=== PATIENT | male | born 1985 | race Caucasian/White ===

== ENCOUNTER 2016-08-21 06:17 | Emergency (ER) | payer OTHER ==
[~2016-08-21] VITALS: Wt 65.0 kg
[~2016-08-21 06:17] MED LIST: AMO500 PO; BISA-57 PO; CIPR7.5D4 LEFT EAR; CITROMA PO; HYDR-3498 PO; IBUP800T25 PO; MECL25TA2 PO; NAPR-260 PO
[2016-08-21] MEDS ORDERED: KETOROLAC 30 MG INJ IM STA (06:45)
--- NOTE | 2016-08-21 06:50 | ERD ---
ER Documentation Chief Complaint Date/Time DATE: 08/21/16 TIME: 06:48 Chief Complaint left shoulder non-traumatic for 3 wks. good rom . no deformity HPI This is a 31-year-old Male who presents to emergency department today complaining of left shoulder pain for past 3 weeks. 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 States he did see his clinic but they just gave him medication for pain. Denies any trauma, fevers or chills. ROS All systems reviewed and are negative except as per history of present illness. Medications Home Meds Active Scripts Tramadol HCl (Tramadol HCl) 50 Mg Tablet, 50 MG PO Q4 Y for PAIN, #20 TAB Prov:AMADEO OSORIO PA-C 08/21/16 Naproxen* (Naprosyn*) 500 Mg Tablet, 500 MG PO BID Y for PAIN AND/OR INFLAMMATION, #30 TAB Prov:AMADEO OSORIO PA-C 08/21/16 Magnesium Citrate* (Citroma*) 300 Ml Soln, 150 ML PO BID, #1 BOTTLE Prov:IGOR ALATORRE PA-C 01/03/16 Bisacodyl* (Dulcolax*) 5 Mg Tablet.dr, 10 MG PO DAILY Y for CONSTIPATION, #15 TAB Prov:IGOR ALATORRE PA-C 01/03/16 Hydrocodone Bit-Acetaminophen* ([place]*) 5-325 Mg Tab, 1 TAB PO Q6 Y for PAIN, # 7 TAB Prov:ELMO NICOLE PA-C 10/10/15 Naproxen* (Naprosyn*) 500 Mg Tablet, 500 MG PO BID Y for PAIN AND/OR INFLAMMATION, #20 TAB Prov:ELMO NICOLE PA-C 10/10/15 Ibuprofen* (Motrin*) 800 Mg Tab, 800 MG PO Q6H Y for PAIN AND OR ELEVATED TEMP, #30 TAB Prov:JESSICA PEREZ MD 10/05/15 Amoxicillin* (Amoxicillin*) 500 Mg Cap, 500 MG PO TID for 7 Days, CAP Prov:JESSICA PEREZ MD 10/05/15 Meclizine Hcl* (Antivert*) 25 Mg Tablet, 25 MG PO Q6H Y for NAUSEA, #20 TAB 0 Refills Prov:JULSIA HOPPER PA-C 09/27/15 Ciprofloxacin Hcl/Dexameth (Ciprodex Otic Suspension) 7.5 Ml Drops.susp, 4 DROP LEFT EAR BID, #1 BOTTLE 0 Refills Prov:JULISA HOPPER PA-C 09/27/15 Ibuprofen* (Motrin*) 800 Mg Tab, 800 MG PO Q6H Y for PAIN AND OR ELEVATED TEMP, #30 TAB Prov:EUGENIO DUBOIS. ELECTRICAL POWER ENGINEER 06/27/15 Naproxen* (Naprosyn*) 500 Mg Tablet, 500 MG PO BID Y for PAIN AND/OR INFLAMMATION, #10 TAB Prov:CAROLYNSANDRA JORGE DO 03/15/15 Allergies Allergies: Coded Allergies: No Known Allergy (Unverified , 08/21/16) PMhx/Soc Medical and Surgical Hx: pt denies Medical Hx, pt denies Surgical Hx History of Surgery: No Anesthesia Reaction: No Hx Neurological Disorder: No Hx Respiratory Disorders: No Hx Cardiac Disorders: No Hx Psychiatric Problems: No Hx Miscellaneous Medical Probl: No Hx Alcohol Use: No Hx Substance Use: No Hx Tobacco Use: No Smoking Status: Never smoker Physical Exam Vitals Vital Signs Date Time Temp Pulse Resp B/P Pulse Ox O2 Delivery O2 Flow Rate FiO2 08/21/16 06:20 97.9 78 20 125/75 99 Physical Exam Const: No acute distress Head: Atraumatic Eyes: Normal Conjunctiva ENT: Normal External Ears, Nose and Mouth. Neck: Full range of motion..~ No meningismus. Resp: Clear to auscultation bilaterally Cardio: Regular rate and rhythm, no murmurs Abd: Soft, non tender, non distended. Normal bowel sounds Skin: No petechiae or rashes MSk: Left shoulder no obvious deformity. No effusion. No ecchymosis. Full active range of motion with pain at end ranges of motion. Positive Tay. Pulses 2+. Distal neurovascularly intact. Neur: Awake and alert Psych: Normal Mood and Affect Results 24 hrs Current Medications Medications (Trade) Dose Ordered Sig/Annette Route PRN Reason Start Time Stop Time Status Last Admin Dose Admin Ketorolac Tromethamine (Toradol) 30 mg ONCE STAT IM 08/21/16 06:45 08/21/16 06:47 DC 08/21/16 06:49 DIAGNOSTIC IMAGING REPORT Patient: HEMANT TRIPATHI : 1985 Age: 31 Sex: M MR #: [id number] DOS: 08/21/16 0000 Ordering MD: AMADEO OSORIO PA-C Location: [facility] Room/Bed: PROCEDURE: XR left shoulder. CLINICAL INDICATION: pain x 3 weeks TECHNIQUE: 3 views of the left shoulder were performed. COMPARISON: None. FINDINGS: No fracture or dislocation is seen. No lytic or blastic bony lesion is seen. No significant degenerative change. No definite soft tissue abnormality. IMPRESSION: No definite acute fracture or dislocation. RPTAT: HLBE Laura Cabrera Physician Date Time Electronically viewed and signed by Laura Cabrera Physician on 08/21/2016 07 :41 LE/ CC: AMADEO OSORIO PA-C Procedures/MDM This 31-year-old male who presents to emergency department today complaining of left shoulder pain. The past 3 weeks. Patient has seen his clinic and has been given since her medication for pain. Patient is requesting an x-ray. Per the radiology report images are unremarkable. There is no acute fracture dislocation. There is no lytic or blastic bone lesion. There is no significant degenerative changes. Patient is afebrile and otherwise well-appearing. There is no erythema or warmth and no suspicion for septic joint or gout. Patient's symptoms at this time consistent with muscular skeletal strain versus sprain versus tendinitis. Patient was given Toradol here in the emergency department as he was driving. Pain improved. Patient was given a prescription for Naprosyn and short course of tramadol and instructed to follow-up with his primary care clinic for referral to physical therapy or orthopedic nurse or physical therapy. At this time the patient is stable for discharge and outpatient management. Patient should follow up with their PCP in the next 1-2 days. They may return to the emergency department sooner for any persistent or worsening of symptoms. Patient understood and agreed with the plan. Departure Diagnosis: Primary Impression: Shoulder pain Laterality: left Chronicity: unspecified Qualified Code: M25.512 - Left shoulder pain, unspecified chronicity Condition: Fair JO,AMADEO M. PA-C Aug 21, 2016 06:50
--- NOTE | 2016-08-21 07:42 | RADRPT ---
PROCEDURE: XR left shoulder. CLINICAL INDICATION: pain x 3 weeks TECHNIQUE: 3 views of the left shoulder were performed. COMPARISON: None. FINDINGS: No fracture or dislocation is seen. No lytic or blastic bony lesion is seen. No significant degene rative change. No definite soft tissue abnormality. IMPRESSION: No definite acute fracture or dislocation. RPTAT: HLBE Laura Cabrera Physician Date Time Electronically viewed and signed by Laura Cabrera, Physician on 08/21/2016 07:41 KIRK/
[2016-08-21] MEDS ORDERED: NAPR-260 PO (07:56)
[2016-08-21] MEDS ORDERED: ULT50 PO (07:56)
[2016-08-21 08:06] VITALS: BP 118/64; PULSE 72; RESP 19; TEMP 98.3
== END 2016-08-21 08:07 | disposition home or self-care (01) ==
LOC: FTE 06:17
DX: M25.512 Pain in left shoulder (principal)
CPT/HCPCS: 73030; 96372; 99284; J1885

== ENCOUNTER 2017-02-18 21:46 | Emergency (ER) | payer OTHER ==
[~2017-02-18] VITALS: Ht 162.6 cm; Wt 67.0 kg
[~2017-02-18 21:46] MED LIST changes: +TRAM50TA2 PO
[2017-02-18 21:49] VITALS: Ht 162.6 cm; Wt 67.0 kg
[2017-02-18] MEDS ORDERED: ONDANSETRON (ODT) 4 MG TAB ODT STA (22:57)
[2017-02-18] MEDS ORDERED: morphine 10 MG INJ IM ONE (23:00)
[2017-02-18] MEDS ORDERED: HYDROCODONE/APAP (10/325) TAB PO ONE (23:30)
--- NOTE | 2017-02-18 23:40 | RADRPT ---
PROCEDURE: ABDOMINAL - 2 VIEWS CLINICAL INDICATION: 31-year-old male with abdominal pain. TECHNIQUE: AP supine views of the abdomen were obtained portably. The images reviewed on a PACS w orkstation. COMPARISON: None. FINDINGS: The lung bases are unremarkable. There is mild retained stool and air throughout the colon without gross bowel obstruction. There are no abnormal calcifications overlying the urinary tracts. The osse ous structures are unremarkable. IMPRESSION: Mild retained stool without gross bowel obstruction. .Alton Maguire MD, Date Time Electronically viewed and signed by .Alton Maguire MD, on 02/18/2017 23:39 .M/
--- NOTE | 2017-02-19 00:09 | ERD ---
ER Documentation Chief Complaint Date/Time DATE: 02/19/17 TIME: 00:08 Chief Complaint LT UPPER ABD PAIN X 1 WEEK , VOMITING/DIZZINESS TODAY HPI 31 mL left upper abdominal pain for 1 week after drinking mag citrate. Patient has been constipated. He is having cramping abdominal pain. Had a bowel movement which was normal in caliber. Pain mild to moderate intensity. No fevers no chills. ROS All systems reviewed and are negative except as per history of present illness. Medications Home Meds Active Scripts Tramadol HCl (Tramadol HCl) 50 Mg Tablet, 50 MG PO Q4 Y for PAIN, #20 TAB Prov:AMADEO OSORIO PA-C 08/21/16 Naproxen* (Naprosyn*) 500 Mg Tablet, 500 MG PO BID Y for PAIN AND/OR INFLAMMATION, #30 TAB Prov:AMADEO OSORIO PA-C 08/21/16 Magnesium Citrate* (Citroma*) 300 Ml Soln, 150 ML PO BID, #1 BOTTLE Prov:IGOR ALATORRE PA-C 01/03/16 Bisacodyl* (Dulcolax*) 5 Mg Tablet.dr, 10 MG PO DAILY Y for CONSTIPATION, #15 TAB Prov:IGOR ALATORRE PA-C 01/03/16 Hydrocodone Bit-Acetaminophen* ([place]*) 5-325 Mg Tab, 1 TAB PO Q6 Y for PAIN, # 7 TAB Prov:ELMO NICOLE PA-C 10/10/15 Naproxen* (Naprosyn*) 500 Mg Tablet, 500 MG PO BID Y for PAIN AND/OR INFLAMMATION, #20 TAB Prov:ELMO NICOLE PA-C 10/10/15 Ibuprofen* (Motrin*) 800 Mg Tab, 800 MG PO Q6H Y for PAIN AND OR ELEVATED TEMP, #30 TAB Prov:JESSICA PEREZ MD 10/05/15 Amoxicillin* (Amoxicillin*) 500 Mg Cap, 500 MG PO TID for 7 Days, CAP Prov:JESSICA PEREZ MD 10/05/15 Meclizine Hcl* (Antivert*) 25 Mg Tablet, 25 MG PO Q6H Y for NAUSEA, #20 TAB 0 Refills Prov:JULISA HOPPER PA-C 09/27/15 Ciprofloxacin Hcl/Dexameth (Ciprodex Otic Suspension) 7.5 Ml Drops.susp, 4 DROP LEFT EAR BID, #1 BOTTLE 0 Refills Prov:JULISA HOPPER PA-C 09/27/15 Ibuprofen* (Motrin*) 800 Mg Tab, 800 MG PO Q6H Y for PAIN AND OR ELEVATED TEMP, #30 TAB Prov:EUGENIO DUBOIS. BIODIESEL PRODUCTION TECHNICIAN 06/27/15 Naproxen* (Naprosyn*) 500 Mg Tablet, 500 MG PO BID Y for PAIN AND/OR INFLAMMATION, #10 TAB Prov:SANDRA LEON DO 03/15/15 Allergies Allergies: Coded Allergies: No Known Allergy (Unverified , 08/21/16) PMhx/Soc History of Surgery: No Anesthesia Reaction: No Hx Neurological Disorder: No Hx Respiratory Disorders: No Hx Cardiac Disorders: No Hx Psychiatric Problems: No Hx Miscellaneous Medical Probl: No Hx Alcohol Use: No Hx Substance Use: No Hx Tobacco Use: No Smoking Status: Never smoker Physical Exam Vitals Vital Signs Date Time Temp Pulse Resp B/P Pulse Ox O2 Delivery O2 Flow Rate FiO2 02/18/17 21:49 98.1 76 18 119/59 99 Physical Exam Const: [] Head: Atraumatic Eyes: Normal Conjunctiva ENT: Normal External Ears, Nose and Mouth. Neck: Full range of motion..~ No meningismus. Resp: Clear to auscultation bilaterally Cardio: Regular rate and rhythm, no murmurs Abd: Soft, non tender, non distended. Normal bowel sounds Skin: No petechiae or rashes Back: No midline or flank tenderness Ext: No cyanosis, or edema Neur: Awake and alert Psych: Normal Mood and Affect Results 24 hrs Current Medications Medications (Trade) Dose Ordered Sig/Annette Route PRN Reason Start Time Stop Time Status Last Admin Dose Admin Morphine Sulfate (morphine) 4 mg ONCE ONCE IM 02/18/17 23:00 02/18/17 23:01 DC Ondansetron HCl (Zofran Odt) 4 mg ONCE STAT ODT 02/18/17 22:57 02/18/17 22:59 DC 02/18/17 23:13 Acetaminophen/ Hydrocodone Bitart ([place] (10/325)) 1 tab ONCE ONCE PO 02/18/17 23:30 02/18/17 23:31 DC 02/18/17 23:13 Procedures/MDM X-ray Abdomen 1V Interpreted by me: Free Air: [None] Bowel Gas: [Nonspecific] Soft Tissue: [Normal] Medical decision-makin mL with pain secondary to mag citrate usage. Patient still mildly constipated. Patient be discharged home with Bentyl along with Colace. Follow-up in 8 hours for serial abdominal exams. Well-appearing tolerating p.o. serial negative abdominal exams here in the emergency department Departure Diagnosis: Primary Impression: Constipation Constipation type: unspecified constipation type Qualified Code: K59.00 - Constipation, unspecified constipation type Additional Impression: Abdominal pain Abdominal location: unspecified location Qualified Code: R10.9 - Abdominal pain, unspecified location Condition: Stable MAMIE MORRIS Feb 19, 2017 00:08
[2017-02-19] MEDS ORDERED: DOCU-144 PO (00:11)
[2017-02-19] MEDS ORDERED: DICY10CA60 PO (00:11)
== END 2017-02-19 00:22 | disposition home or self-care (01) ==
LOC: E/R 21:46
DX: K59.00 Constipation, unspecified (principal)
CPT/HCPCS: 74000

== ENCOUNTER 2017-05-10 06:37 | Emergency (ER) | payer OTHER ==
[~2017-05-10] VITALS: Ht 162.6 cm; Wt 66.0 kg
[~2017-05-10 06:37] MED LIST changes: -AMO500 PO; +AMOX500C2 PO; +DICY10CA60 PO; +DOCU-144 PO
[2017-05-10 06:49] VITALS: Ht 162.6 cm; Wt 66.0 kg
[2017-05-10] MEDS ORDERED: ONDANSETRON 4 MG INJ IV STA (07:14)
[2017-05-10] MEDS ORDERED: SOD CHLORIDE 0.9% 1,000 ML IV STA (07:14)
[2017-05-10] MEDS ORDERED: morphine 4 MG/ML VIAL IV STA (07:14)
[2017-05-10] MEDS ORDERED: KETOROLAC 30 MG INJ IV STA (07:14)
--- NOTE | 2017-05-10 07:18 | ERD ---
ER Documentation Chief Complaint Date/Time DATE: 05/10/17 TIME: 07:15 Chief Complaint left abdominal pain x 10 days HPI This is a 31-year-old previously healthy male that presents to the emergency department complaining of intermittent epigastric and left upper quadrant pain for the past 10 days. He denies any recent or remote blunt or penetrating abdominal wall trauma. He states that the pain was a dull achy pain that would be exacerbated with touch and movement. Indicates however that upon awakening this morning the pain began to radiate to the left lower quadrant and was 10 out of 10 in intensity. The pain was persistent and there is no alleviating factors. The patient had one episode of nonbloody nonbilious emesis. He denies any radiation of pain to the back. He has no fevers or shaking or chills. He denies any illicit drug use or alcohol use. He denies any gross hematuria. He has no recurrence urgency or dysuria. He has no chest pain or pressure that radiates to the neck or back or jaw. He has no shortness of breath at rest or exertion. ROS All systems reviewed and are negative except as per history of present illness. Medications Home Meds Active Scripts Naproxen* (Naprosyn*) 500 Mg Tablet, 500 MG PO BID Y for PAIN AND/OR INFLAMMATION, #30 TAB Prov:OLIVIA OCASIO 05/10/17 Docusate Sodium* (Colace*) 100 Mg Capsule, 100 MG PO TID, #30 CAP Prov:MAMIE MORRIS 02/19/17 Dicyclomine Hcl* (Bentyl*) 10 Mg Capsule, 10 MG PO QID, #30 CAP Prov:MMAIE MORRIS 02/19/17 Tramadol HCl (Tramadol HCl) 50 Mg Tablet, 50 MG PO Q4 Y for PAIN, #20 TAB Prov:AMADEO OSORIO PA-C 08/21/16 Naproxen* (Naprosyn*) 500 Mg Tablet, 500 MG PO BID Y for PAIN AND/OR INFLAMMATION, #30 TAB Prov:AMADEO OSORIOC 08/21/16 Magnesium Citrate* (Citroma*) 300 Ml Soln, 150 ML PO BID, #1 BOTTLE Prov:IGOR ALATORREC 01/03/16 Bisacodyl* (Dulcolax*) 5 Mg Tablet.dr, 10 MG PO DAILY Y for CONSTIPATION, #15 TAB Prov:IGOR ALATORRE PA-C 01/03/16 Hydrocodone Bit-Acetaminophen* ([place]*) 5-325 Mg Tab, 1 TAB PO Q6 Y for PAIN, # 7 TAB Prov:ELMO NICOLE PA-C 10/10/15 Naproxen* (Naprosyn*) 500 Mg Tablet, 500 MG PO BID Y for PAIN AND/OR INFLAMMATION, #20 TAB Prov:ELMO NICOLE PA-C 10/10/15 Ibuprofen* (Motrin*) 800 Mg Tab, 800 MG PO Q6H Y for PAIN AND OR ELEVATED TEMP, #30 TAB Prov:JESSICA PEREZ MD 10/05/15 Amoxicillin* (Amoxicillin*) 500 Mg Cap, 500 MG PO TID for 7 Days, CAP Prov:JESSICA PEREZ MD 10/05/15 Meclizine Hcl* (Antivert*) 25 Mg Tablet, 25 MG PO Q6H Y for NAUSEA, #20 TAB 0 Refills Prov:JULISA HOPPER PA-C 09/27/15 Ciprofloxacin Hcl/Dexameth (Ciprodex Otic Suspension) 7.5 Ml Drops.susp, 4 DROP LEFT EAR BID, #1 BOTTLE 0 Refills Prov:JULISA HOPPER PA-C 09/27/15 Ibuprofen* (Motrin*) 800 Mg Tab, 800 MG PO Q6H Y for PAIN AND OR ELEVATED TEMP, #30 TAB Prov:EUGENIO DUBOIS NP 06/27/15 Naproxen* (Naprosyn*) 500 Mg Tablet, 500 MG PO BID Y for PAIN AND/OR INFLAMMATION, #10 TAB Prov:SANDRA LEON DO 03/15/15 Allergies Allergies: Coded Allergies: No Known Allergy (Unverified , 08/21/16) PMhx/Soc History of Surgery: No Anesthesia Reaction: No Hx Neurological Disorder: No Hx Respiratory Disorders: No Hx Cardiac Disorders: No Hx Psychiatric Problems: No Hx Miscellaneous Medical Probl: No Hx Alcohol Use: No Hx Substance Use: No Hx Tobacco Use: No Smoking Status: Never smoker Physical Exam Vitals Vital Signs Date Time Temp Pulse Resp B/P Pulse Ox O2 Delivery O2 Flow Rate FiO2 05/10/17 06:49 98.4 57 18 136/76 100 Physical Exam Constitutional:Well-developed. Well-nourished. HEENT:Normocephalic. Atraumatic.Pupils were equal round reactive to light. Moist mucous membranes.No tonsillar exudates. Neck: No nuchal rigidity. No lymphadenopathy. No posterior cervical spine tenderness or step-offs. Respiratory: Not using accessory muscles of respiration.Lungs were clear to auscultation bilaterally. No rhonchi. No rales. No wheezing. Cardiovascular: Regular rate regular rhythm.No murmurs. No rubs were appreciated.S1, S2 normal. Distal pulses are palpable 2+ bilaterally. GI: Abdomen was soft. The gastric tenderness and tenderness in the left lower quadrant. Non Distended. No pulsatile abdominal masses or bruits. No rebound. No guarding. Bowel sounds were present and normal. Muscle skeletal: Full range of motion of both the upper and lower extremities bilaterally.Normal muscle tone.No assymetrical calf tenderness or swelling. Skin: No petechia, no purpura. No lesions on the palms or the soles of the feet. No maculopapular rash. NEURO: Patient was alert, awake, orientated x3.No facial droop. Gait observed and normal with no ataxia.Speech had regular rate and rhythm. No focal neurological deficits. Result Diagram: 05/10/17 0725 05/10/17 0725 Results 24 hrs Laboratory Tests Test 05/10/17 07:25 White Blood Count 7.310^3/ul Red Blood Count 5.3110^6/ul Hemoglobin 16.7g/dl Hematocrit 46.9% Mean Corpuscular Volume 88.3fl Mean Corpuscular Hemoglobin 31.5pg Mean Corpuscular Hemoglobin Concent 35.6g/dl Red Cell Distribution Width 11.8% Platelet Count 58301^3/UL Mean Platelet Volume 10.0fl Neutrophils % 37.2% Lymphocytes % 34.9% Monocytes % 7.2% Eosinophils % 20.0% Basophils % 0.6% Nucleated Red Blood Cells % 0.0/100WBC Neutrophils # 2.710^3/ul Lymphocytes # 2.510^3/ul Monocytes # 0.510^3/ul Eosinophils # 1.510^3/ul Basophils # 0.010^3/ul Nucleated Red Blood Cells # 0.010^3/ul Prothrombin Time 12.9Sec Prothrombin Time Ratio 1.0 INR International Normalized Ratio 0.97 Activated Partial Thromboplast Time 31.6Sec Urine Color YELLOW Urine Clarity SLIGHTLY CLOUDY Urine pH 7.0 Urine Specific Ashley 1.019 Urine Ketones NEGATIVEmg/dL Urine Nitrite NEGATIVEmg/dL Urine Bilirubin NEGATIVEmg/dL Urine Urobilinogen NEGATIVEmg/dL Urine Leukocyte Esterase NEGATIVELeu/ul Urine Microscopic RBC 1/HPF Urine Microscopic WBC 2/HPF Urine Amorphous Crystals FEW/HPF Urine Bacteria FEW/HPF Urine Hemoglobin NEGATIVEmg/dL Urine Glucose NEGATIVEmg/dL Urine Total Protein NEGATIVEmg/dl Sodium Level 141mmol/L Potassium Level 4.2mmol/L Chloride Level 103mmol/L Carbon Dioxide Level 29mmol/L Anion Gap 13 Blood Urea Nitrogen 19mg/dl Creatinine 0.76mg/dl Glucose Level 94mg/dl Calcium Level 9.4mg/dl Total Bilirubin 0.7mg/dl Direct Bilirubin 0.00mg/dl Indirect Bilirubin 0.7mg/dl Aspartate Amino Transf (AST/SGOT) 31IU/L Alanine Aminotransferase (ALT/SGPT) 33IU/L Alkaline Phosphatase 70IU/L Total Protein 8.6g/dl Albumin 5.0g/dl Globulin 3.60g/dl Albumin/Globulin Ratio 1.38 Amylase Level 117U/L Lipase 186U/L Current Medications Medications (Trade) Dose Ordered Sig/Annette Route PRN Reason Start Time Stop Time Status Last Admin Dose Admin Sodium Chloride (NS) 1,000 ml @ 1,000 mls/hr Q1H STAT IV 05/10/17 07:14 05/10/17 08:13 DC 05/10/17 07:31 Morphine Sulfate (morphine) 4 mg ONCE STAT IV 05/10/17 07:14 05/10/17 07:16 DC 05/10/17 07:32 Ondansetron HCl (Zofran Inj) 4 mg ONCE STAT IV 05/10/17 07:14 05/10/17 07:16 DC 05/10/17 07:32 Ketorolac Tromethamine 30 mg 30 mg ONCE STAT IV 05/10/17 07:14 05/10/17 07:16 DC 05/10/17 07:31 Sodium Chloride (NS) 100 ml @ ud STK-MED ONCE .ROUTE 05/10/17 08:30 05/10/17 08:31 DC Iohexol (Omnipaque 300mg/ ml) 150 ml STK-MED ONCE .ROUTE 05/10/17 08:30 05/10/17 08:31 DC Procedures/MDM The patient presented to the emergency department with epigastric pain. My differential diagnosis included but was not limited to abdominal aortic aneurysm , choledocholithiasis, gallstone ileus, renal colic, pyelonephritis, pancreatitis, peptic ulcer disease, atypical myocardical infarction, mesenteric ischemia, GERD, pulmonary infarction. The patient was placed on a cardiac cath rn, continuous pulse oximetry and IV access was established by nursing staff. Patient received IV morphine Zofran and Toradol for analgesia control An EKG was not obtained as the patient has no cardiac risk factors and no chest discomfort therefore did not feel this was a result of atypical myocardial infarction. There was no elevation of LFTs to suggest ductal obstruction, cholangitis, cholecystiitis or hepatitis. Given that the urinalysis did not show bilirubinuria, my suspicion for common duct obstruction or hepatitis was low. I obtained a CT scan of the patient's abdomen which showed no acute surgical abdomen such as appendicitis, diverticulitis small bowel obstruction or perforation. I indicated to the patient I did not have an exact etiology into the cause of the patient's symptoms but this could be musculoskeletal versus gastritis however indicated that the patient will require an outpatient upper endoscopy. He was given GI follow-up. He was sent home with analgesic medication which included Naprosyn for inflammation. The patient was discharged home in fair condition. They were instructed to return to the emergency department at any time if there was any worsening of their condition. The patient stated they would follow up with their PCP in the next 24-48 hours to initiate a suitable medication regimen under the care of their PCP as well as to allow their PCP to monitor any drug reactions. The patient was discharged home with prescriptions after they gave informed consent to the new medication. They were also fully informed by myself on the adverse effects and adverse drug interactions in order to provide adequate safeguards to prevent possible adverse reactions to medications. Departure Diagnosis: Primary Impression: Abdominal pain Abdominal location: left lower quadrant Qualified Code: R10.32 - Left lower quadrant pain Condition: Fair OLIVIA OCASIO May 10, 2017 07:18
[2017-05-10 07:45] LABS: BASOPHILS % 0.6 % (0.0-2.0); EOSINOPHILS # 1.5 10^3/ul (0.0-0.5); HEMATOCRIT 46.9 % (42.0-52.0); HEMOGLOBIN 16.7 g/dl (14.0-18.0); LYMPHOCYTES # 2.5 10^3/ul (0.8-2.9); LYMPHOCYTES % 34.9 % (15.0-51.0); MEAN CORPUSCULAR HEMOGLOBIN 31.5 pg (29.0-33.0); MEAN CORPUSCULAR HGB CONC 35.6 g/dl (32.0-37.0); MEAN CORPUSCULAR VOLUME 88.3 fl (82.0-101.0); MONOCYTE # 0.5 10^3/ul (0.3-0.9); MONOCYTES % 7.2 % (0.0-11.0); NEUTROPHIL # 2.7 10^3/ul (1.6-7.5); NEUTROPHILS % 37.2 % (39.0-77.0); PLATELET COUNT 199 10^3/UL (140-415); RED BLOOD COUNT 5.31 10^6/ul (4.70-6.10); RED CELL DISTRIBUTION WIDTH 11.8 % (11.5-14.5); WHITE BLOOD COUNT 7.3 10^3/ul (4.8-10.8)
[2017-05-10 08:07] LABS: ALBUMIN/GLOBULIN RATIO 1.38; BILIRUBIN,INDIRECT 0.7 mg/dl (0-1.1); BILIRUBIN,TOTAL 0.7 mg/dl (0.2-1.3); CALCIUM 9.4 mg/dl (8.4-10.2); CREATININE 0.76 mg/dl (0.61-1.24); POTASSIUM 4.2 mmol/L (3.5-5.1); TOTAL PROTEIN 8.6 g/dl (6.1-8.1)
[2017-05-10 08:12] LABS: ADD UMIC NO; INR 0.97; PARTIAL THROMBOPLASTIN TIME 31.6 Sec (25.0-35.0); PROTIME 12.9 Sec (12.2-14.2); UR AMORPHOUS CRYSTAL FEW /HPF (NONE SEEN); UR ASCORBIC ACID NEGATIVE (NEGATIVE); UR BACTERIA FEW /HPF (NONE SEEN); UR BILIRUBIN (Dip) NEGATIVE (NEGATIVE); UR BLOOD (Dip) NEGATIVE (NEGATIVE); UR CLARITY SLIGHTLY CLOUDY (CLEAR); UR COLOR YELLOW (YELLOW); UR GLUCOSE (Dip) NEGATIVE (NEGATIVE); UR KETONES (Dip) NEGATIVE (NEGATIVE); UR LEUKOCYTE ESTERASE (Dip) NEGATIVE Leu/ul (NEGATIVE); UR NITRITE (Dip) NEGATIVE (NEGATIVE); UR RBC 1 /HPF (0-5); UR SPECIFIC GRAVITY (Dip) 1.019 (1.003-1.030); UR TOTAL PROTEIN (Dip) NEGATIVE (NEGATIVE); UR UROBILINOGEN (Dip) NEGATIVE (NEGATIVE)
[2017-05-10] MEDS ORDERED: SOD CHLORIDE 0.9% 100 ML ONE (08:30)
[2017-05-10] MEDS ORDERED: IOHEXOL 300MG/ML 150 ML BTL ONE (08:30)
--- NOTE | 2017-05-10 08:47 | RADRPT ---
PROCEDURE: CT abdomen and pelvis with contrast. CLINICAL INDICATION: abdominal pain TECHNIQUE: CT scan of the abdomen and pelvis with contrast was performed on a multislice CT scanne . The patient was scanned after administration of 90 cc of Omnipaque 300 contrast. Oral contrast was also administered. 3-D sagittal and coronal reformatted images were obtained from the axial aniyah rce images. One or more of the following post reduction techniques were used: - Automated exposure control. - Adjustment of the mA and/or Kv according to patient's size. - Use of iterative reconstruction technique DLP 369 mGycm. CTDI vol 7.05 mGy COMPARISON: 01/03/2016 FINDINGS: The lung bases are clear. The liver, spleen, adrenal glands, pancreas, gallbladder and kidneys are normal. The aorta is normal in caliber and there is no ascites or retroperitoneal adenopathy. There is no bowel obstruction. The appendix is normal. The urinary bladder is normal. No pelvic masses or pelvic lymphadenopathy seen. There is no free fl uid. The bony pelvis is intact. RPTAT: AA IMPRESSION: Unremarkable CT scan of the abdomen and pelvis. .Tyler Ferris MD, MD Date Time Electronically viewed and signed by .Tyler Ferris MD, MD on 05/10/2017 08:47 .S/
[2017-05-10] MEDS ORDERED: NAPR-260 PO (09:20)
== END 2017-05-10 10:07 | disposition home or self-care (01) ==
LOC: FTE 06:37
DX: R10.32 Left lower quadrant pain (principal)
CPT/HCPCS: 36415; 74177; 80053; 81001; 82150; 83690; 85025; 85610; 85730; 96361; 96374; 96375; 99285; J1885; J2270; J2405; J7030; Q9967; 81003

== ENCOUNTER 2017-05-24 06:25 | Emergency (ER) | payer OTHER ==
[~2017-05-24] VITALS: Ht 162.6 cm; Wt 67.8 kg
[2017-05-24 06:27] VITALS: Ht 162.6 cm; Wt 67.8 kg
[2017-05-24] MEDS ORDERED: FAMOTIDINE 20 MG TAB PO ONE (07:00)
[2017-05-24] MEDS ORDERED: LIDOCAINE/MYLANTA 40 ML BTL PO ONE (07:00)
--- NOTE | 2017-05-24 07:01 | ERD ---
ER Documentation Chief Complaint Date/Time DATE: 05/24/17 TIME: 06:56 Chief Complaint left quadrant pain , nose bleeds HPI Patient is a 31-year-old male who presents to the emergency department for concerns of left upper quadrant abdominal pain for the last month. Patient was seen here on 05-10-17 and at that time underwent blood work and a CT scan. Patient states his symptoms have persisted. Patient states the pain continues to be in the left upper quadrant. Patient describes the pain to be achy and burning in nature. Patient states that the pain is worse in the mornings. States that he has been taking naproxen with no relief of symptoms. Patient does admit to spicy and fried food intake. Patient denies any alcohol use. Patient states he did vomit last night. Patient denies any fevers or chills. Patient also reports hard stools. He states his last, it was yesterday however he does have hard, pellet-like stools. Patient denies any radiation of the pain into his chest or back. Patient denies any shortness of breath, left upper extremity pain, diaphoresis or loss of consciousness. Patient has not seen a GI specialist. Patient also reports epistaxis at night. Denies any blood thinner medication. Patient denies any history of coagulation disorders. ROS All systems reviewed and are negative except as per history of present illness. Medications Home Meds Active Scripts Ondansetron (Ondansetron Odt) 4 Mg Tab.rapdis, 4 MG PO Q6H Y for NAUSEA AND/OR VOMITING, #10 TAB Prov:FELIZ GLASGOW PA-C 05/24/17 Famotidine* (Pepcid*) 20 Mg Tablet, 20 MG PO BID for 30 Days, TAB Prov:FELIZ GLASGOW PA-C 05/24/17 Naproxen* (Naprosyn*) 500 Mg Tablet, 500 MG PO BID Y for PAIN AND/OR INFLAMMATION, #30 TAB Prov:OLIVIA OCASIO 05/10/17 Docusate Sodium* (Colace*) 100 Mg Capsule, 100 MG PO TID, #30 CAP Prov:MAMIE MORRIS 02/19/17 Dicyclomine Hcl* (Bentyl*) 10 Mg Capsule, 10 MG PO QID, #30 CAP Prov:MAMIE MORRIS 02/19/17 Tramadol HCl (Tramadol HCl) 50 Mg Tablet, 50 MG PO Q4 Y for PAIN, #20 TAB Prov:AMADEO OSORIO PA-C 08/21/16 Naproxen* (Naprosyn*) 500 Mg Tablet, 500 MG PO BID Y for PAIN AND/OR INFLAMMATION, #30 TAB Prov:AMADEO OSORIO PA-C 08/21/16 Magnesium Citrate* (Citroma*) 300 Ml Soln, 150 ML PO BID, #1 BOTTLE Prov:IGOR ALATORRE PA-C 01/03/16 Bisacodyl* (Dulcolax*) 5 Mg Tablet.dr, 10 MG PO DAILY Y for CONSTIPATION, #15 TAB Prov:IGOR ALATORRE PA-C 01/03/16 Hydrocodone Bit-Acetaminophen* ([place]*) 5-325 Mg Tab, 1 TAB PO Q6 Y for PAIN, # 7 TAB Prov:ELMO NICOLE PA-C 10/10/15 Naproxen* (Naprosyn*) 500 Mg Tablet, 500 MG PO BID Y for PAIN AND/OR INFLAMMATION, #20 TAB Prov:ELMO NICOLE PA-C 10/10/15 Ibuprofen* (Motrin*) 800 Mg Tab, 800 MG PO Q6H Y for PAIN AND OR ELEVATED TEMP, #30 TAB Prov:JESSICA PEREZ MD 10/05/15 Amoxicillin* (Amoxicillin*) 500 Mg Cap, 500 MG PO TID for 7 Days, CAP Prov:JESSICA PEREZ MD 10/05/15 Meclizine Hcl* (Antivert*) 25 Mg Tablet, 25 MG PO Q6H Y for NAUSEA, #20 TAB 0 Refills Prov:JULISA HOPPER PA-C 09/27/15 Ciprofloxacin Hcl/Dexameth (Ciprodex Otic Suspension) 7.5 Ml Drops.susp, 4 DROP LEFT EAR BID, #1 BOTTLE 0 Refills Prov:JULISA HOPPER PA-C 09/27/15 Ibuprofen* (Motrin*) 800 Mg Tab, 800 MG PO Q6H Y for PAIN AND OR ELEVATED TEMP, #30 TAB Prov:EUGENIO DUBOIS NP 06/27/15 Naproxen* (Naprosyn*) 500 Mg Tablet, 500 MG PO BID Y for PAIN AND/OR INFLAMMATION, #10 TAB Prov:SANDRA LEON DO 03/15/15 Allergies Allergies: Coded Allergies: No Known Allergy (Unverified , 05/24/17) PMhx/Soc Medical and Surgical Hx: pt denies Medical Hx, pt denies Surgical Hx History of Surgery: No Anesthesia Reaction: No Hx Neurological Disorder: No Hx Respiratory Disorders: No Hx Cardiac Disorders: No Hx Psychiatric Problems: No Hx Miscellaneous Medical Probl: No Hx Alcohol Use: No Hx Substance Use: No Hx Tobacco Use: No Smoking Status: Never smoker Physical Exam Vitals Vital Signs Date Time Temp Pulse Resp B/P Pulse Ox O2 Delivery O2 Flow Rate FiO2 05/24/17 06:27 98.1 68 17 118/74 99 Physical Exam GENERAL: Well-developed, well-nourished male. Appears in no acute distress. HEAD: Normocephalic, atraumatic. EYES: Pupils are equally reactive bilaterally. EOMs grossly intact. No conjunctival erythema. ENT: Moist mucous membranes. No uvula deviation. No kissing tonsils. NECK: Supple. No meningismus. Normal range of motion of the neck. LUNG: Clear to auscultation bilaterally. No rhonchi, wheezing, rales or coarse breath sounds. HEART: Regular rate and rhythm. No murmurs, rubs or gallops. ABDOMEN: No scars, ecchymosis or rashes noted. Soft and nondistended. Tender to palpation in the right upper quadrant. Positive bowel sounds in all four quadrants. No rebound tenderness, no guarding. (-) McBurney's point tenderness. No CVA tenderness. BACK: No midline tenderness. EXTREMITIES: Equal pulses bilaterally. No peripheral clubbing, cyanosis or edema. No unilateral leg swelling. NEUROLOGIC: Alert and oriented. Moving all four extremities without any difficulty. Normal speech. Steady gait. SKIN: Normal color. Warm and dry. No rashes or lesions. Result Diagram: 05/24/1714 05/24/1714 Results 24 hrs Laboratory Tests Test 05/24/17 07:14 05/24/17 07:17 White Blood Count 7.510^3/ul Red Blood Count 5.3510^6/ul Hemoglobin 16.2g/dl Hematocrit 47.6% Mean Corpuscular Volume 89.0fl Mean Corpuscular Hemoglobin 30.3pg Mean Corpuscular Hemoglobin Concent 34.0g/dl Red Cell Distribution Width 12.0% Platelet Count 23335^3/UL Mean Platelet Volume 9.9fl Neutrophils % 50.3% Lymphocytes % 26.0% Monocytes % 6.8% Eosinophils % 16.3% Basophils % 0.5% Nucleated Red Blood Cells % 0.0/100WBC Neutrophils # 3.810^3/ul Lymphocytes # 1.910^3/ul Monocytes # 0.510^3/ul Eosinophils # 1.210^3/ul Basophils # 0.010^3/ul Nucleated Red Blood Cells # 0.010^3/ul Sodium Level 140mmol/L Potassium Level 4.5mmol/L Chloride Level 103mmol/L Carbon Dioxide Level 30mmol/L Anion Gap 12 Blood Urea Nitrogen 17mg/dl Creatinine 0.72mg/dl Glucose Level 89mg/dl Calcium Level 10.0mg/dl Total Bilirubin 0.3mg/dl Direct Bilirubin 0.00mg/dl Indirect Bilirubin 0.3mg/dl Aspartate Amino Transf (AST/SGOT) 29IU/L Alanine Aminotransferase (ALT/SGPT) 38IU/L Alkaline Phosphatase 68IU/L Total Protein 7.9g/dl Albumin 4.5g/dl Globulin 3.40g/dl Albumin/Globulin Ratio 1.32 Lipase 131U/L Urine Color YELLOW Urine Clarity CLEAR Urine pH 7.0 Urine Specific [place] 1.008 Urine Ketones NEGATIVEmg/dL Urine Nitrite NEGATIVEmg/dL Urine Bilirubin NEGATIVEmg/dL Urine Urobilinogen NEGATIVEmg/dL Urine Leukocyte Esterase NEGATIVELeu/ul Urine Hemoglobin NEGATIVEmg/dL Urine Glucose NEGATIVEmg/dL Urine Total Protein NEGATIVEmg/dl Current Medications Medications (Trade) Dose Ordered Sig/Annette Route PRN Reason Start Time Stop Time Status Last Admin Dose Admin Miscellaneous Medication (Gi Cocktail (2)) 40 ml ONCE ONCE PO 05/24/17 07:00 05/24/17 07:01 DC 05/24/17 07:01 Famotidine (Pepcid) 20 mg ONCE ONCE PO 05/24/17 07:00 05/24/17 07:01 DC 05/24/17 07:02 Procedures/MDM ED COURSE: The patient was stable throughout ED course. I kept the patient and/or family informed of laboratory and diagnostic imaging results throughout the ED course. DIAGNOSTIC IMAGING: Read by radiologist. DIAGNOSTIC IMAGING REPORT Patient: HEMANT ABREU : 1985 Age: 31 Sex: M MR #: [id number] [facility] #: [id number] DOS: 05/24/17 0650 Ordering MD: FELIZ GLASGOW PA-C Location: [facility] Room/Bed: PROCEDURE: Abdominal radiograph CLINICAL INDICATION: Constipation. COMPARISON: Radiograph 02/18/2017. TECHNIQUE: AP view of the abdomen. FINDINGS: The visualized lung bases are clear. No free air. Mild amount of stool within the cecum. No distended loops of bowel. No fluid levels. There is a nonobstructive bowel pattern. No suspicious calcifications. No suspicious bone abnormality. IMPRESSION: No bowel obstruction identified. RPTAT: AA Physician Dharmesh Date Time Electronically viewed and signed by Romero Tomlinson Physician on 05/24/2017 08: 00 LG/ CC: FELIZ GLASGOW PA-C PROCEDURES: None. MEDICATIONS GIVEN: GI cocktail, Pepcid Patient tolerated medication well with no adverse reactions. Patient reported improvement in pain. MEDICAL DECISION MAKING: This is a 31-year-old male who presents with left upper quadrant pain 1 month. Patient did admit to spicy and fried food intake. Patient denies any alcohol use. Patient denies any fevers or chills. Patient reported one episode of vomiting last night. Vital signs were reviewed. Patient is afebrile. CBC showed no evidence of systemic infection or severe anemia. CMP showed no evidence of electrolyte abnormalities, severe acidosis, alkalosis, renal failure , or liver disease. Lipase showed no evidence of acute pancreatitis. UA showed no evidence of acute infection or hematuria. KUB showed No bowel obstruction identified. Patient reported improvement in symptoms after GI cocktail and pepcid. Upon review of the patient's medical records. Patient had CT abd and pelvis on 05-10-17. CT scan was negative. Given that patient's blood work is essentially unremarkable, I do not feel that additional imaging studies are indicated at this time. At this time, patient's presentation is most consistent with gastritis. Unable to rule out PUD at this time. EKG was not obtained given that patient denies any chest pain. I have a low suspicion for ACS or atypical chest pain. Patient for DKA, bowel obstruction, bowel perforation, cholecystitis, pancreatitis, splenic rupture, diverticulosis, UTI, pyelonephritis, phthisis. PRESCRIPTIONS: Pepcid, Zofran DISCHARGE: At this time, patient is stable for discharge and outpatient management. Patient was given a copy of all imaging studies and blood work obtained today. Patient was encouraged to follow-up with the GI specialist. Referral information provided. I have instructed the patient to follow-up with his/her primary care physician in 1-2 days. I have instructed the patient to promptly return to the ER at any time for any new or worsening symptoms including increased pain, nausea, vomiting, diarrhea, fever, weakness or LOC. The patient and/or family expressed understanding of and agreement with this plan. All questions were answered. Home care instructions were provided. Disclaimer: Inadvertent spelling and grammatical errors are likely due to EHR/ dictation software use and do not reflect on the overall quality of patient care. Also, please note that the electronic time recorded on this note does not necessarily reflect the actual time of the patient encounter. Departure Diagnosis: Primary Impression: LUQ abdominal pain Condition: Stable Patient Instructions: Gastritis Vs. Ulcer Referrals: SHAYLA LAWRENCE MD,JANET CABA MD, MD,CRISPIN TYSON MD, MD,BRAYDEN Ford MD Additional Instructions: Call your primary care doctor TOMORROW for an appointment during the next 1-2 days.See the doctor sooner or return here if your condition worsens before your appointment time. Follow-up with the GI specialist for an endoscopy. See referral information. FELIZ GLASGOW PA-C May 24, 2017 07:01
[2017-05-24 07:21] LABS: BASOPHILS % 0.5 % (0.0-2.0); EOSINOPHILS # 1.2 10^3/ul (0.0-0.5); EOSINOPHILS % 16.3 % (0.0-7.0); HEMATOCRIT 47.6 % (42.0-52.0); HEMOGLOBIN 16.2 g/dl (14.0-18.0); LYMPHOCYTES # 1.9 10^3/ul (0.8-2.9); MEAN CORPUSCULAR HEMOGLOBIN 30.3 pg (29.0-33.0); MEAN PLATELET VOLUME 9.9 fl (7.4-10.4); MONOCYTE # 0.5 10^3/ul (0.3-0.9); MONOCYTES % 6.8 % (0.0-11.0); NEUTROPHIL # 3.8 10^3/ul (1.6-7.5); NEUTROPHILS % 50.3 % (39.0-77.0); PLATELET COUNT 202 10^3/UL (140-415); RED BLOOD COUNT 5.35 10^6/ul (4.70-6.10); WHITE BLOOD COUNT 7.5 10^3/ul (4.8-10.8)
[2017-05-24 07:30] LABS: ADD UMIC NO; UR ASCORBIC ACID NEGATIVE (NEGATIVE); UR BILIRUBIN (Dip) NEGATIVE (NEGATIVE); UR BLOOD (Dip) NEGATIVE (NEGATIVE); UR CLARITY CLEAR (CLEAR); UR COLOR YELLOW (YELLOW); UR GLUCOSE (Dip) NEGATIVE (NEGATIVE); UR KETONES (Dip) NEGATIVE (NEGATIVE); UR LEUKOCYTE ESTERASE (Dip) NEGATIVE Leu/ul (NEGATIVE); UR NITRITE (Dip) NEGATIVE (NEGATIVE); UR SPECIFIC GRAVITY (Dip) 1.008 (1.003-1.030); UR TOTAL PROTEIN (Dip) NEGATIVE (NEGATIVE); UR UROBILINOGEN (Dip) NEGATIVE (NEGATIVE)
[2017-05-24 07:44] LABS: ALBUMIN 4.5 g/dl (3.3-4.9); ALBUMIN/GLOBULIN RATIO 1.32; BILIRUBIN,INDIRECT 0.3 mg/dl (0-1.1); BILIRUBIN,TOTAL 0.3 mg/dl (0.2-1.3); CREATININE 0.72 mg/dl (0.61-1.24); POTASSIUM 4.5 mmol/L (3.5-5.1); TOTAL PROTEIN 7.9 g/dl (6.1-8.1)
--- NOTE | 2017-05-24 08:01 | RADRPT ---
PROCEDURE: Abdominal radiograph CLINICAL INDICATION: Constipation. COMPARISON: Radiograph 02/18/2017. TECHNIQUE: AP view of the abdomen. FINDINGS: The visualized lung bases are clear. No free air. Mild amount of stool within the cecum. No distended loops of bowel. No fluid levels. There is a nonobstructive bowel pattern. No suspicious calcifications. No suspicious bone abnormality. IMPRESSION: No bowel obstruction identified. RPTAT: AA Physician Dharmesh Date Time Electronically viewed and signed by Romero Tomlinson Physician on 05/24/2017 08:00 LG/
[2017-05-24] MEDS ORDERED: FAMO-96 PO (08:10)
[2017-05-24] MEDS ORDERED: ONDA4TAB14 PO (08:11)
== END 2017-05-24 08:30 | disposition home or self-care (01) ==
LOC: FTE 06:25
DX: R10.12 Left upper quadrant pain (principal); R11.10 Vomiting, unspecified
CPT/HCPCS: 36415; 74000; 80053; 81003; 83690; 85025

== ENCOUNTER 2017-06-10 22:41 | Emergency (ER) | payer OTHER ==
[~2017-06-10] VITALS: Ht 167.6 cm; Wt 67.5 kg
[~2017-06-10 22:41] MED LIST changes: +FAMO-96 PO; +ONDA4TAB14 PO
[2017-06-10 22:45] VITALS: Ht 167.6 cm; Wt 67.5 kg
[2017-06-11] MEDS ORDERED: KETOROLAC 30 MG INJ IM STA (00:47)
[2017-06-11] MEDS ORDERED: RANITIDINE 150 MG TAB PO ONE (01:00)
[2017-06-11] MEDS ORDERED: LIDOCAINE/MYLANTA 40 ML BTL PO ONE (01:00)
--- NOTE | 2017-06-11 01:23 | RADRPT ---
PROCEDURE: XR Chest. CLINICAL INDICATION: Left upper quadrant and left rib pain. TECHNIQUE: Single frontal view of the chest. COMPARISON: None. FINDINGS: The cardiomediastinal silhouette is within normal limits. The lungs are clear. No signs of pleural f luid or pneumothorax are seen. The osseous structures and soft tissues are unremarkable. IMPRESSION: No evidence for active cardiopulmonary disease. RPTAT: UU Physician Ashanti Date Time Electronically viewed and signed by Martha Fields Physician on 06/11/2017 01:23 RS/
[2017-06-11] MEDS ORDERED: RANI150T9 PO (01:45)
[2017-06-11] MEDS ORDERED: OMEP20CA16 PO (01:45)
--- NOTE | 2017-06-14 11:49 | ERD ---
ER Documentation Chief Complaint Chief Complaint Lt rib [id number]. Denies abd pain.-n/v.-trauma. Seen in ED 05/24 for same HPI Patient is a 32-year-old male with multiple visits to this emergency department in the past, presenting to the emergency department with complaints of left upper quadrant pain intermittently for the past 3 months. The patient denies any trauma. He was seen in the emergency department on 1011 for the same complaint with a workup that was negative. Symptoms are worsening. Symptoms are worse with movement. No fevers, chills, or other symptoms reported currently. ROS All systems reviewed and are negative except as per history of present illness. Medications Home Meds Active Scripts Ranitidine Hcl* (Zantac*) 150 Mg Tablet, 150 MG PO BID Y for EPIGASTRIC PAIN, # 30 TAB Prov:MAMIE HOLLOWAY PA-C 06/11/17 Omeprazole* (Omeprazole*) 20 Mg Capsule.dr, 20 MG PO DAILY, #20 Prov:MAMIE HOLLOWAY PA-C 06/11/17 Ondansetron (Ondansetron Odt) 4 Mg Tab.rapdis, 4 MG PO Q6H Y for NAUSEA AND/OR VOMITING, #10 TAB Prov:FELIZ GLASGOW PA-C 05/24/17 Famotidine* (Pepcid*) 20 Mg Tablet, 20 MG PO BID for 30 Days, TAB Prov:FELIZ GLASGOW PA-C 05/24/17 Naproxen* (Naprosyn*) 500 Mg Tablet, 500 MG PO BID Y for PAIN AND/OR INFLAMMATION, #30 TAB Prov:OLIVIA OCASIO 05/10/17 Docusate Sodium* (Colace*) 100 Mg Capsule, 100 MG PO TID, #30 CAP Prov:MAMIE MORRIS 02/19/17 Dicyclomine Hcl* (Bentyl*) 10 Mg Capsule, 10 MG PO QID, #30 CAP Prov:MAMIE MORRIS 02/19/17 Tramadol HCl (Tramadol HCl) 50 Mg Tablet, 50 MG PO Q4 Y for PAIN, #20 TAB Prov:AMADEO OSORIO PA-C 08/21/16 Naproxen* (Naprosyn*) 500 Mg Tablet, 500 MG PO BID Y for PAIN AND/OR INFLAMMATION, #30 TAB Prov:AMADEO OSORIO PA-C 08/21/16 Magnesium Citrate* (Citroma*) 300 Ml Soln, 150 ML PO BID, #1 BOTTLE Prov:IGOR ALATORRE PA-C 01/03/16 Bisacodyl* (Dulcolax*) 5 Mg Tablet.dr, 10 MG PO DAILY Y for CONSTIPATION, #15 TAB Prov:IGOR ALATORRE PA-C 01/03/16 Hydrocodone Bit-Acetaminophen* ([place]*) 5-325 Mg Tab, 1 TAB PO Q6 Y for PAIN, # 7 TAB Prov:ELMO NICOLE PA-C 10/10/15 Naproxen* (Naprosyn*) 500 Mg Tablet, 500 MG PO BID Y for PAIN AND/OR INFLAMMATION, #20 TAB Prov:ELMO NICOLE PA-C 10/10/15 Ibuprofen* (Motrin*) 800 Mg Tab, 800 MG PO Q6H Y for PAIN AND OR ELEVATED TEMP, #30 TAB Prov:JESSICA PEREZ MD 10/05/15 Amoxicillin* (Amoxicillin*) 500 Mg Cap, 500 MG PO TID for 7 Days, CAP Prov:JESSICA PEREZ MD 10/05/15 Meclizine Hcl* (Antivert*) 25 Mg Tablet, 25 MG PO Q6H Y for NAUSEA, #20 TAB 0 Refills Prov:JULISA HOPPER PA-C 09/27/15 Ciprofloxacin Hcl/Dexameth (Ciprodex Otic Suspension) 7.5 Ml Drops.susp, 4 DROP LEFT EAR BID, #1 BOTTLE 0 Refills Prov:JULISA HOPPER PA-C 09/27/15 Ibuprofen* (Motrin*) 800 Mg Tab, 800 MG PO Q6H Y for PAIN AND OR ELEVATED TEMP, #30 TAB Prov:EUGENIO DUBOIS NP 06/27/15 Naproxen* (Naprosyn*) 500 Mg Tablet, 500 MG PO BID Y for PAIN AND/OR INFLAMMATION, #10 TAB Prov:SANDRA LEON DO 03/15/15 Allergies Allergies: Coded Allergies: No Known Allergy (Unverified , 06/10/17) PMhx/Soc Medical and Surgical Hx: pt denies Medical Hx, pt denies Surgical Hx History of Surgery: No Anesthesia Reaction: No Hx Neurological Disorder: No Hx Respiratory Disorders: No Hx Cardiac Disorders: No Hx Psychiatric Problems: No Hx Miscellaneous Medical Probl: No Hx Alcohol Use: Yes Hx Substance Use: No Hx Tobacco Use: No Smoking Status: Never smoker Physical Exam Vitals Vital Signs Date Time Temp Pulse Resp B/P Pulse Ox O2 Delivery O2 Flow Rate FiO2 06/10/17 22:45 98.5 65 18 121/86 99 Physical Exam Const: Nontoxic, well-appearing male in no acute distress. Head: Atraumatic Eyes: Normal Conjunctiva ENT: Normal External Ears, Nose and Mouth. Neck: Full range of motion..~ No meningismus. Resp: Clear to auscultation bilaterally Cardio: Regular rate and rhythm, no murmurs Abd: Soft, tenderness palpation noted to the left upper quadrant, no rebound tenderness or guarding, no McBurney's point tenderness., non distended. Normal bowel sounds Skin: No petechiae or rashes Ext: No cyanosis, or edema Neur: Awake and alert Psych: Normal Mood and Affect Results 24 hrs Current Medications Medications (Trade) Dose Ordered Sig/Annette Route PRN Reason Start Time Stop Time Status Last Admin Dose Admin Miscellaneous Medication (Gi Cocktail (2)) 40 ml ONCE ONCE PO 06/11/17 01:00 06/11/17 01:01 DC Ketorolac Tromethamine (Toradol) 30 mg ONCE STAT IM 06/11/17 00:47 06/11/17 00:49 DC 06/11/17 01:23 Ranitidine HCl (Zantac) 150 mg ONCE ONCE PO 06/11/17 01:00 06/11/17 01:01 DC 06/11/17 01:23 Procedures/[facility] Patient is a 32-year-old male presenting to the emergency department with complaints of left upper quadrant pain. Upon review of the patient's past medical records the patient has had multiple emergency room visits to this facility with the same complaint including multiple negative workups. The patient states he was not able to follow-up with the GI specialist or primary care physician, which he has been instructed to do many times. I discussed this case with the attending physician, Dr. Eveline Alvarenga who agreed that a chest x-ray would be the best course of action at this time. The patient was also given IM Toradol. He was feeling significantly improved on reevaluation. Chest x-ray was not concerning for any acute abnormality. The patient's symptoms are likely secondary to GERD since this is left upper quadrant and midepigastric. He was stable for discharge with prescription for ranitidine and omeprazole. He was advised to have close follow-up with his primary care physician and GI specialist. No evidence of life-threatening pathology at time of discharge. Pt/family in agreement with discharge plan/diagnosis. Pt/family advised to return immediately with any new or worsening symptoms. Follow-up with primary care physician within the next 1-2 days. Disclaimer: Inadvertent spelling and grammatical errors are likely due to EHR/ dictation software use and do not reflect on the overall quality of patient care. Also, please note that the electronic time recorded on this note does not necessarily reflect the actual time of the patient encounter. PROCEDURE: XR Chest. CLINICAL INDICATION: Left upper quadrant and left rib pain. TECHNIQUE: Single frontal view of the chest. COMPARISON: None. FINDINGS: The cardiomediastinal silhouette is within normal limits. The lungs are clear. No signs of pleural fluid or pneumothorax are seen. The osseous structures and soft tissues are unremarkable. IMPRESSION: No evidence for active cardiopulmonary disease. RPTAT: UU Physician Ashanti Date Time Electronically viewed and signed by Physician Ashanti on 06/11/2017 01:23 Departure Diagnosis: Primary Impression: Abdominal pain Abdominal location: unspecified location Qualified Code: R10.9 - Abdominal pain, unspecified abdominal location Condition: Fair Patient Instructions: Abdominal Pain Referrals: ALEJO MELLO SALEEM A MD [facility] () Usted se andersen hecho un examen mdico de control que le indica que no est en zev condicin que requiera tratamiento urgente en el Departamento de Emergencia. Un estudio ms profundo y el tratamiento de wahl condicin pueden esperar sin ningn riesgo hasta que usted sea atendida/o en el consultorio de wahl mdico o zev cl isidro. Es responsabilidad suya arreglar zev sotero para el seguimiento del nenita. MANEJO DE CONDICIONES NO URGENTES EN EL FUTURO 1) Si usted tiene un mdico de atencin primaria: Usted debera llamar a wahl mdico de atencin primaria antes de venir al departamento de emergencia. Despus de las horas de consultorio, wahl doctor o wahl asociado/a est disponible por telfono. El mdico o enfermero de kell en el servicio telefnico puede asesorarle por lena medio para atender el problema, o nenita contrario se puede programar zev sotero. 2) Si usted no tiene un mdico de atencin primaria: Llame al mdico o clnica de referencia que aparece abajo juana las horas de consultorio para hacer zev sotero para que le vean. CLINICAS: [facility] [phone] [id number] [facility] [phone] [facility] [phone] [facility] [phone] [facility] [phone] [address] [facility] [phone] [address] Additional Instructions: No mas mejor en 2-3 saucedo, regresar. Mas peor en 24 horas, regresear rapidamente. Ir a doctor primario en 1-2 saucedo. Usar instrucciones cuando tonja medicamento. MAMIE HOLLOWAY PA-C Jun 14, 2017 11:49
--- NOTE | 2017-06-14 11:49 | ERD ---
ER Documentation Chief Complaint Chief Complaint Lt rib [id number]. Denies abd pain.-n/v.-trauma. Seen in ED 05/24 for same HPI Patient is a 32-year-old male with multiple visits to this emergency department in the past, presenting to the emergency department with complaints of left upper quadrant pain intermittently for the past 3 months. The patient denies any trauma. He was seen in the emergency department on 1011 for the same complaint with a workup that was negative. Symptoms are worsening. Symptoms are worse with movement. No fevers, chills, or other symptoms reported currently. ROS All systems reviewed and are negative except as per history of present illness. Medications Home Meds Active Scripts Ranitidine Hcl* (Zantac*) 150 Mg Tablet, 150 MG PO BID Y for EPIGASTRIC PAIN, # 30 TAB Prov:MAMIE HOLLOWAY PA-C 06/11/17 Omeprazole* (Omeprazole*) 20 Mg Capsule.dr, 20 MG PO DAILY, #20 Prov:MAMIE HOLLOWAY PA-C 06/11/17 Ondansetron (Ondansetron Odt) 4 Mg Tab.rapdis, 4 MG PO Q6H Y for NAUSEA AND/OR VOMITING, #10 TAB Prov:FELIZ GLASGOW PA-C 05/24/17 Famotidine* (Pepcid*) 20 Mg Tablet, 20 MG PO BID for 30 Days, TAB Prov:FELIZ GLASGOW PA-C 05/24/17 Naproxen* (Naprosyn*) 500 Mg Tablet, 500 MG PO BID Y for PAIN AND/OR INFLAMMATION, #30 TAB Prov:OLIVIA OCASIO 05/10/17 Docusate Sodium* (Colace*) 100 Mg Capsule, 100 MG PO TID, #30 CAP Prov:MAMIE MORRIS 02/19/17 Dicyclomine Hcl* (Bentyl*) 10 Mg Capsule, 10 MG PO QID, #30 CAP Prov:MAMIE MORRIS 02/19/17 Tramadol HCl (Tramadol HCl) 50 Mg Tablet, 50 MG PO Q4 Y for PAIN, #20 TAB Prov:AMADEO OSORIO PA-C 08/21/16 Naproxen* (Naprosyn*) 500 Mg Tablet, 500 MG PO BID Y for PAIN AND/OR INFLAMMATION, #30 TAB Prov:AMADEO OSORIO PA-C 08/21/16 Magnesium Citrate* (Citroma*) 300 Ml Soln, 150 ML PO BID, #1 BOTTLE Prov:IGOR ALATORRE PA-C 01/03/16 Bisacodyl* (Dulcolax*) 5 Mg Tablet.dr, 10 MG PO DAILY Y for CONSTIPATION, #15 TAB Prov:IGOR ALATORRE PA-C 01/03/16 Hydrocodone Bit-Acetaminophen* ([place]*) 5-325 Mg Tab, 1 TAB PO Q6 Y for PAIN, # 7 TAB Prov:ELMO NICOLE PA-C 10/10/15 Naproxen* (Naprosyn*) 500 Mg Tablet, 500 MG PO BID Y for PAIN AND/OR INFLAMMATION, #20 TAB Prov:ELMO NICOLE PA-C 10/10/15 Ibuprofen* (Motrin*) 800 Mg Tab, 800 MG PO Q6H Y for PAIN AND OR ELEVATED TEMP, #30 TAB Prov:JESSICA PEREZ MD 10/05/15 Amoxicillin* (Amoxicillin*) 500 Mg Cap, 500 MG PO TID for 7 Days, CAP Prov:JESSICA PEREZ MD 10/05/15 Meclizine Hcl* (Antivert*) 25 Mg Tablet, 25 MG PO Q6H Y for NAUSEA, #20 TAB 0 Refills Prov:JULISA HOPPER PA-C 09/27/15 Ciprofloxacin Hcl/Dexameth (Ciprodex Otic Suspension) 7.5 Ml Drops.susp, 4 DROP LEFT EAR BID, #1 BOTTLE 0 Refills Prov:JULISA HOPPER PA-C 09/27/15 Ibuprofen* (Motrin*) 800 Mg Tab, 800 MG PO Q6H Y for PAIN AND OR ELEVATED TEMP, #30 TAB Prov:EUGENIO DUBOIS NP 06/27/15 Naproxen* (Naprosyn*) 500 Mg Tablet, 500 MG PO BID Y for PAIN AND/OR INFLAMMATION, #10 TAB Prov:SANDRA LEON DO 03/15/15 Allergies Allergies: Coded Allergies: No Known Allergy (Unverified , 06/10/17) PMhx/Soc Medical and Surgical Hx: pt denies Medical Hx, pt denies Surgical Hx History of Surgery: No Anesthesia Reaction: No Hx Neurological Disorder: No Hx Respiratory Disorders: No Hx Cardiac Disorders: No Hx Psychiatric Problems: No Hx Miscellaneous Medical Probl: No Hx Alcohol Use: Yes Hx Substance Use: No Hx Tobacco Use: No Smoking Status: Never smoker Physical Exam Vitals Vital Signs Date Time Temp Pulse Resp B/P Pulse Ox O2 Delivery O2 Flow Rate FiO2 06/10/17 22:45 98.5 65 18 121/86 99 Physical Exam Const: Nontoxic, well-appearing male in no acute distress. Head: Atraumatic Eyes: Normal Conjunctiva ENT: Normal External Ears, Nose and Mouth. Neck: Full range of motion..~ No meningismus. Resp: Clear to auscultation bilaterally Cardio: Regular rate and rhythm, no murmurs Abd: Soft, tenderness palpation noted to the left upper quadrant, no rebound tenderness or guarding, no McBurney's point tenderness., non distended. Normal bowel sounds Skin: No petechiae or rashes Ext: No cyanosis, or edema Neur: Awake and alert Psych: Normal Mood and Affect Results 24 hrs Current Medications Medications (Trade) Dose Ordered Sig/Annette Route PRN Reason Start Time Stop Time Status Last Admin Dose Admin Miscellaneous Medication (Gi Cocktail (2)) 40 ml ONCE ONCE PO 06/11/17 01:00 06/11/17 01:01 DC Ketorolac Tromethamine (Toradol) 30 mg ONCE STAT IM 06/11/17 00:47 06/11/17 00:49 DC 06/11/17 01:23 Ranitidine HCl (Zantac) 150 mg ONCE ONCE PO 06/11/17 01:00 06/11/17 01:01 DC 06/11/17 01:23 Procedures/[facility] Patient is a 32-year-old male presenting to the emergency department with complaints of left upper quadrant pain. Upon review of the patient's past medical records the patient has had multiple emergency room visits to this facility with the same complaint including multiple negative workups. The patient states he was not able to follow-up with the GI specialist or primary care physician, which he has been instructed to do many times. I discussed this case with the attending physician, Dr. Eveline Alvarenga who agreed that a chest x-ray would be the best course of action at this time. The patient was also given IM Toradol. He was feeling significantly improved on reevaluation. Chest x-ray was not concerning for any acute abnormality. The patient's symptoms are likely secondary to GERD since this is left upper quadrant and midepigastric. He was stable for discharge with prescription for ranitidine and omeprazole. He was advised to have close follow-up with his primary care physician and GI specialist. No evidence of life-threatening pathology at time of discharge. Pt/family in agreement with discharge plan/diagnosis. Pt/family advised to return immediately with any new or worsening symptoms. Follow-up with primary care physician within the next 1-2 days. Disclaimer: Inadvertent spelling and grammatical errors are likely due to EHR/ dictation software use and do not reflect on the overall quality of patient care. Also, please note that the electronic time recorded on this note does not necessarily reflect the actual time of the patient encounter. PROCEDURE: XR Chest. CLINICAL INDICATION: Left upper quadrant and left rib pain. TECHNIQUE: Single frontal view of the chest. COMPARISON: None. FINDINGS: The cardiomediastinal silhouette is within normal limits. The lungs are clear. No signs of pleural fluid or pneumothorax are seen. The osseous structures and soft tissues are unremarkable. IMPRESSION: No evidence for active cardiopulmonary disease. RPTAT: UU Physician Ashanti Date Time Electronically viewed and signed by Physician Ashanti on 06/11/2017 01:23 Departure Diagnosis: Primary Impression: Abdominal pain Abdominal location: unspecified location Qualified Code: R10.9 - Abdominal pain, unspecified abdominal location Condition: Fair Patient Instructions: Abdominal Pain Referrals: ALEJO MELLO SALEEM A MD [facility] () Usted se andersen hecho un examen mdico de control que le indica que no est en zev condicin que requiera tratamiento urgente en el Departamento de Emergencia. Un estudio ms profundo y el tratamiento de wahl condicin pueden esperar sin ningn riesgo hasta que usted sea atendida/o en el consultorio de wahl mdico o zev cl isidro. Es responsabilidad suya arreglar zev sotero para el seguimiento del nenita. MANEJO DE CONDICIONES NO URGENTES EN EL FUTURO 1) Si usted tiene un mdico de atencin primaria: Usted debera llamar a wahl mdico de atencin primaria antes de venir al departamento de emergencia. Despus de las horas de consultorio, wahl doctor o wahl asociado/a est disponible por telfono. El mdico o enfermero de kell en el servicio telefnico puede asesorarle por lena medio para atender el problema, o nenita contrario se puede programar zev sotero. 2) Si usted no tiene un mdico de atencin primaria: Llame al mdico o clnica de referencia que aparece abajo juana las horas de consultorio para hacer zev sotero para que le vean. CLINICAS: [facility] [phone] [address] [facility] [phone] [address] [facility] [phone] [address] [facility] [phone] [address] [facility]. [facility] [phone] [address] [facility]. [phone] [address] Additional Instructions: No mas mejor en 2-3 saucedo, regresar. Mas peor en 24 horas, regresear rapidamente. Ir a doctor primario en 1-2 saucedo. Usar instrucciones cuando tonja medicamento. MAMIE HOLLOWAY PA-C Jun 14, 2017 11:49
--- NOTE | 2017-06-14 11:49 | ERD ---
ER Documentation Chief Complaint Chief Complaint Lt rib [id number]. Denies abd pain.-n/v.-trauma. Seen in ED 05/24 for same HPI Patient is a 32-year-old male with multiple visits to this emergency department in the past, presenting to the emergency department with complaints of left upper quadrant pain intermittently for the past 3 months. The patient denies any trauma. He was seen in the emergency department on 1011 for the same complaint with a workup that was negative. Symptoms are worsening. Symptoms are worse with movement. No fevers, chills, or other symptoms reported currently. ROS All systems reviewed and are negative except as per history of present illness. Medications Home Meds Active Scripts Ranitidine Hcl* (Zantac*) 150 Mg Tablet, 150 MG PO BID Y for EPIGASTRIC PAIN, # 30 TAB Prov:MAMIE HOLLOWAY PA-C 06/11/17 Omeprazole* (Omeprazole*) 20 Mg Capsule.dr, 20 MG PO DAILY, #20 Prov:MAMIE HOLLOWAY PA-C 06/11/17 Ondansetron (Ondansetron Odt) 4 Mg Tab.rapdis, 4 MG PO Q6H Y for NAUSEA AND/OR VOMITING, #10 TAB Prov:FELIZ GLASGOW PA-C 05/24/17 Famotidine* (Pepcid*) 20 Mg Tablet, 20 MG PO BID for 30 Days, TAB Prov:FELIZ GLASGOW PA-C 05/24/17 Naproxen* (Naprosyn*) 500 Mg Tablet, 500 MG PO BID Y for PAIN AND/OR INFLAMMATION, #30 TAB Prov:OLIVIA OCASIO 05/10/17 Docusate Sodium* (Colace*) 100 Mg Capsule, 100 MG PO TID, #30 CAP Prov:MAMIE MORRIS 02/19/17 Dicyclomine Hcl* (Bentyl*) 10 Mg Capsule, 10 MG PO QID, #30 CAP Prov:MAMIE MORRIS 02/19/17 Tramadol HCl (Tramadol HCl) 50 Mg Tablet, 50 MG PO Q4 Y for PAIN, #20 TAB Prov:AMADEO OSORIO PA-C 08/21/16 Naproxen* (Naprosyn*) 500 Mg Tablet, 500 MG PO BID Y for PAIN AND/OR INFLAMMATION, #30 TAB Prov:AMADEO OSORIO PA-C 08/21/16 Magnesium Citrate* (Citroma*) 300 Ml Soln, 150 ML PO BID, #1 BOTTLE Prov:IGOR ALATORRE PA-C 01/03/16 Bisacodyl* (Dulcolax*) 5 Mg Tablet.dr, 10 MG PO DAILY Y for CONSTIPATION, #15 TAB Prov:IGOR ALATORRE PA-C 01/03/16 Hydrocodone Bit-Acetaminophen* ([place]*) 5-325 Mg Tab, 1 TAB PO Q6 Y for PAIN, # 7 TAB Prov:ELMO NICOLE PA-C 10/10/15 Naproxen* (Naprosyn*) 500 Mg Tablet, 500 MG PO BID Y for PAIN AND/OR INFLAMMATION, #20 TAB Prov:ELMO NICOLE PA-C 10/10/15 Ibuprofen* (Motrin*) 800 Mg Tab, 800 MG PO Q6H Y for PAIN AND OR ELEVATED TEMP, #30 TAB Prov:JESSICA PEREZ MD 10/05/15 Amoxicillin* (Amoxicillin*) 500 Mg Cap, 500 MG PO TID for 7 Days, CAP Prov:JESSICA PEREZ MD 10/05/15 Meclizine Hcl* (Antivert*) 25 Mg Tablet, 25 MG PO Q6H Y for NAUSEA, #20 TAB 0 Refills Prov:JULISA HOPPER PA-C 09/27/15 Ciprofloxacin Hcl/Dexameth (Ciprodex Otic Suspension) 7.5 Ml Drops.susp, 4 DROP LEFT EAR BID, #1 BOTTLE 0 Refills Prov:JULISA HOPPER PA-C 09/27/15 Ibuprofen* (Motrin*) 800 Mg Tab, 800 MG PO Q6H Y for PAIN AND OR ELEVATED TEMP, #30 TAB Prov:EUGENIO DUBOIS NP 06/27/15 Naproxen* (Naprosyn*) 500 Mg Tablet, 500 MG PO BID Y for PAIN AND/OR INFLAMMATION, #10 TAB Prov:SANDRA LEON DO 03/15/15 Allergies Allergies: Coded Allergies: No Known Allergy (Unverified , 06/10/17) PMhx/Soc Medical and Surgical Hx: pt denies Medical Hx, pt denies Surgical Hx History of Surgery: No Anesthesia Reaction: No Hx Neurological Disorder: No Hx Respiratory Disorders: No Hx Cardiac Disorders: No Hx Psychiatric Problems: No Hx Miscellaneous Medical Probl: No Hx Alcohol Use: Yes Hx Substance Use: No Hx Tobacco Use: No Smoking Status: Never smoker Physical Exam Vitals Vital Signs Date Time Temp Pulse Resp B/P Pulse Ox O2 Delivery O2 Flow Rate FiO2 06/10/17 22:45 98.5 65 18 121/86 99 Physical Exam Const: Nontoxic, well-appearing male in no acute distress. Head: Atraumatic Eyes: Normal Conjunctiva ENT: Normal External Ears, Nose and Mouth. Neck: Full range of motion..~ No meningismus. Resp: Clear to auscultation bilaterally Cardio: Regular rate and rhythm, no murmurs Abd: Soft, tenderness palpation noted to the left upper quadrant, no rebound tenderness or guarding, no McBurney's point tenderness., non distended. Normal bowel sounds Skin: No petechiae or rashes Ext: No cyanosis, or edema Neur: Awake and alert Psych: Normal Mood and Affect Results 24 hrs Current Medications Medications (Trade) Dose Ordered Sig/Annette Route PRN Reason Start Time Stop Time Status Last Admin Dose Admin Miscellaneous Medication (Gi Cocktail (2)) 40 ml ONCE ONCE PO 06/11/17 01:00 06/11/17 01:01 DC Ketorolac Tromethamine (Toradol) 30 mg ONCE STAT IM 06/11/17 00:47 06/11/17 00:49 DC 06/11/17 01:23 Ranitidine HCl (Zantac) 150 mg ONCE ONCE PO 06/11/17 01:00 06/11/17 01:01 DC 06/11/17 01:23 Procedures/[facility] Patient is a 32-year-old male presenting to the emergency department with complaints of left upper quadrant pain. Upon review of the patient's past medical records the patient has had multiple emergency room visits to this facility with the same complaint including multiple negative workups. The patient states he was not able to follow-up with the GI specialist or primary care physician, which he has been instructed to do many times. I discussed this case with the attending physician, Dr. Eveline Alvarenga who agreed that a chest x-ray would be the best course of action at this time. The patient was also given IM Toradol. He was feeling significantly improved on reevaluation. Chest x-ray was not concerning for any acute abnormality. The patient's symptoms are likely secondary to GERD since this is left upper quadrant and midepigastric. He was stable for discharge with prescription for ranitidine and omeprazole. He was advised to have close follow-up with his primary care physician and GI specialist. No evidence of life-threatening pathology at time of discharge. Pt/family in agreement with discharge plan/diagnosis. Pt/family advised to return immediately with any new or worsening symptoms. Follow-up with primary care physician within the next 1-2 days. Disclaimer: Inadvertent spelling and grammatical errors are likely due to EHR/ dictation software use and do not reflect on the overall quality of patient care. Also, please note that the electronic time recorded on this note does not necessarily reflect the actual time of the patient encounter. PROCEDURE: XR Chest. CLINICAL INDICATION: Left upper quadrant and left rib pain. TECHNIQUE: Single frontal view of the chest. COMPARISON: None. FINDINGS: The cardiomediastinal silhouette is within normal limits. The lungs are clear. No signs of pleural fluid or pneumothorax are seen. The osseous structures and soft tissues are unremarkable. IMPRESSION: No evidence for active cardiopulmonary disease. RPTAT: UU Physician sAhanti Date Time Electronically viewed and signed by Physician Ashanti on 06/11/2017 01:23 Departure Diagnosis: Primary Impression: Abdominal pain Abdominal location: unspecified location Qualified Code: R10.9 - Abdominal pain, unspecified abdominal location Condition: Fair Patient Instructions: Abdominal Pain Referrals: ALEJO MELLO SALEEM A MD [facility] () Usted se andersen hecho un examen mdico de control que le indica que no est en zev condicin que requiera tratamiento urgente en el Departamento de Emergencia. Un estudio ms profundo y el tratamiento de wahl condicin pueden esperar sin ningn riesgo hasta que usted sea atendida/o en el consultorio de wahl mdico o zev cl isidro. Es responsabilidad suya arreglar zev sotero para el seguimiento del nenita. MANEJO DE CONDICIONES NO URGENTES EN EL FUTURO 1) Si usted tiene un mdico de atencin primaria: Usted debera llamar a wahl mdico de atencin primaria antes de venir al departamento de emergencia. Despus de las horas de consultorio, wahl doctor o wahl asociado/a est disponible por telfono. El mdico o enfermero de kell en el servicio telefnico puede asesorarle por lena medio para atender el problema, o nenita contrario se puede programar zev sotero. 2) Si usted no tiene un mdico de atencin primaria: Llame al mdico o clnica de referencia que aparece abajo juana las horas de consultorio para hacer zev sotero para que le vean. CLINICAS: [facility] [phone] [address] [facility] [phone] [address] [facility] [phone] [address] [facility] [phone] [facility] [phone] [address] [facility] [phone] [address] Additional Instructions: No mas mejor en 2-3 saucedo, regresar. Mas peor en 24 horas, regresear rapidamente. Ir a doctor primario en 1-2 saucedo. Usar instrucciones cuando tonja medicamento. MAMIE HOLLOWAY PA-C Jun 14, 2017 11:49
== END 2017-06-11 01:59 | disposition home or self-care (01) ==
LOC: FTE 22:41
DX: R10.12 Left upper quadrant pain (principal)
CPT/HCPCS: 71010; 96372; 99284; J1885

== ENCOUNTER → 2017-07-26 | Emergency (ER) | payer OTHER ==
[~2017-07-26] VITALS: Ht 172.7 cm; Wt 65.1 kg
[~2017-07-26] MED LIST changes: +BISA10SU55 RC; +BISACODYL 10 MG SUPP PR ONE; +KETOROLAC 30 MG INJ IV STA; +OMEP20CA16 PO; +POLY17PO6 PO; +RANI150T9 PO
[2017-07-26 03:18] VITALS: Ht 172.7 cm; Wt 65.1 kg
--- NOTE | 2017-07-26 04:06 | ERD ---
ER Documentation Chief Complaint Chief Complaint abd pain x 3 months HPI The patient is a 32-year-old male, presenting to the ER because of chronic abdominal pain, was seen in the ER multiple times for similar symptoms, he had negative abdominal pelvic CAT scan on May 10, 2017. He has chronic constipation, denies fever, chills, neck pain, chest pain, dysuria, diarrhea. He does not smoke, drinks socially Past medical history: Constipation -[id number]- History: None ROS All systems reviewed and are negative except as per history of present illness. Medications Home Meds Active Scripts Bisacodyl (Dulcolax) 10 Mg Supp.rect, 10 MG RC DAILY, #10 SUPP.RECT Prov:ELVIA PADILLA MD 07/26/17 Polyethylene Glycol* (Miralax*) 17 Gm Powd.pack, 17 GM PO DAILY, #7 Prov:ELVIA PADILLA MD 07/26/17 Ranitidine Hcl* (Zantac*) 150 Mg Tablet, 150 MG PO BID Y for EPIGASTRIC PAIN, # 30 TAB Prov:MAMIE HOLLOWAY PA-C 06/11/17 Omeprazole* (Omeprazole*) 20 Mg Capsule.dr, 20 MG PO DAILY, #20 Prov:MAMIE HOLLOWAY PA-C 06/11/17 Ondansetron (Ondansetron Odt) 4 Mg Tab.rapdis, 4 MG PO Q6H Y for NAUSEA AND/OR VOMITING, #10 TAB Prov:FELIZ GLASGOW PA-C 05/24/17 Famotidine* (Pepcid*) 20 Mg Tablet, 20 MG PO BID for 30 Days, TAB Prov:FELIZ GLASGOW PA-C 05/24/17 Naproxen* (Naprosyn*) 500 Mg Tablet, 500 MG PO BID Y for PAIN AND/OR INFLAMMATION, #30 TAB Prov:OLIVIA OCASIO 05/10/17 Docusate Sodium* (Colace*) 100 Mg Capsule, 100 MG PO TID, #30 CAP Prov:MAMIE MORRIS 02/19/17 Dicyclomine Hcl* (Bentyl*) 10 Mg Capsule, 10 MG PO QID, #30 CAP Prov:MAMIE MORRIS 02/19/17 Tramadol HCl (Tramadol HCl) 50 Mg Tablet, 50 MG PO Q4 Y for PAIN, #20 TAB Prov:AMADEO OSORIO PA-C 08/21/16 Naproxen* (Naprosyn*) 500 Mg Tablet, 500 MG PO BID Y for PAIN AND/OR INFLAMMATION, #30 TAB Prov:AMADEO OSORIO PA-C 08/21/16 Magnesium Citrate* (Citroma*) 300 Ml Soln, 150 ML PO BID, #1 BOTTLE Prov:IGOR ALATORRE PA-C 01/03/16 Bisacodyl* (Dulcolax*) 5 Mg Tablet.dr, 10 MG PO DAILY Y for CONSTIPATION, #15 TAB Prov:IGOR ALATORRE PA-C 01/03/16 Hydrocodone Bit-Acetaminophen* (Maybell*) 5-325 Mg Tab, 1 TAB PO Q6 Y for PAIN, # 7 TAB Prov:ELMO NICOLE PA-C 10/10/15 Naproxen* (Naprosyn*) 500 Mg Tablet, 500 MG PO BID Y for PAIN AND/OR INFLAMMATION, #20 TAB Prov:ELMO NICOLE PA-C 10/10/15 Ibuprofen* (Motrin*) 800 Mg Tab, 800 MG PO Q6H Y for PAIN AND OR ELEVATED TEMP, #30 TAB Prov:JESSICA PEREZ MD 10/05/15 Amoxicillin* (Amoxicillin*) 500 Mg Cap, 500 MG PO TID for 7 Days, CAP Prov:JESSICA PEREZ MD 10/05/15 Meclizine Hcl* (Antivert*) 25 Mg Tablet, 25 MG PO Q6H Y for NAUSEA, #20 TAB 0 Refills Prov:JULISA HOPPER PA-C 09/27/15 Ciprofloxacin Hcl/Dexameth (Ciprodex Otic Suspension) 7.5 Ml Drops.susp, 4 DROP LEFT EAR BID, #1 BOTTLE 0 Refills Prov:JULISA HOPPER PA-C 09/27/15 Ibuprofen* (Motrin*) 800 Mg Tab, 800 MG PO Q6H Y for PAIN AND OR ELEVATED TEMP, #30 TAB Prov:EUGENIO DUBOIS NP 06/27/15 Naproxen* (Naprosyn*) 500 Mg Tablet, 500 MG PO BID Y for PAIN AND/OR INFLAMMATION, #10 TAB Prov:SANDRA LEON DO 03/15/15 Allergies Allergies: Coded Allergies: No Known Allergy (Unverified , 06/10/17) PMhx/Soc History of Surgery: No Anesthesia Reaction: No Hx Neurological Disorder: No Hx Respiratory Disorders: No Hx Cardiac Disorders: No Hx Psychiatric Problems: No Hx Miscellaneous Medical Probl: No Hx Alcohol Use: Yes Hx Substance Use: No Hx Tobacco Use: No Physical Exam Vitals Vital Signs Date Time Temp Pulse Resp B/P Pulse Ox O2 Delivery O2 Flow Rate FiO2 07/26/17 03:18 98.3 64 20 129/68 100 Physical Exam Const: No acute distress. Head: Atraumatic. Eyes: Normal Conjunctiva. ENT: Normal External Ears, Nose and Mouth. Neck: Full range of motion. No meningismus. Resp: Clear to auscultation bilaterally. Cardio: Regular rate and rhythm. Abd: Soft, non distended, normal bowel sounds, vague and diffuse abdominal tenderness, no rigidity, rebound, CVA tenderness Skin: No petechiae or rashes. Back: No midline or flank tenderness. Ext: No cyanosis, or edema. Neur: Awake and alert. No focal deficit Psych: Normal Mood and Affect. Result Diagram: 07/26/17 0419 07/26/17 0419 Results 24 hrs Laboratory Tests Test 07/26/17 04:19 07/26/17 04:22 White Blood Count 5.810^3/ul Red Blood Count 4.8710^6/ul Hemoglobin 15.2g/dl Hematocrit 43.0% Mean Corpuscular Volume 88.3fl Mean Corpuscular Hemoglobin 31.2pg Mean Corpuscular Hemoglobin Concent 35.3g/dl Red Cell Distribution Width 11.3% Platelet Count 76631^3/UL Mean Platelet Volume 10.1fl Neutrophils % 39.7% Lymphocytes % 41.5% Monocytes % 8.1% Eosinophils % 10.2% Basophils % 0.5% Nucleated Red Blood Cells % 0.0/100WBC Neutrophils # 2.310^3/ul Lymphocytes # 2.410^3/ul Monocytes # 0.510^3/ul Eosinophils # 0.610^3/ul Basophils # 0.010^3/ul Nucleated Red Blood Cells # 0.010^3/ul Sodium Level 143mmol/L Potassium Level 4.2mmol/L Chloride Level 104mmol/L Carbon Dioxide Level 28mmol/L Anion Gap 15 Blood Urea Nitrogen 16mg/dl Creatinine 0.77mg/dl Glucose Level 96mg/dl Calcium Level 9.3mg/dl Total Bilirubin 0.4mg/dl Direct Bilirubin 0.00mg/dl Indirect Bilirubin 0.4mg/dl Aspartate Amino Transf (AST/SGOT) 29IU/L Alanine Aminotransferase (ALT/SGPT) 42IU/L Alkaline Phosphatase 57IU/L Total Protein 7.0g/dl Albumin 4.1g/dl Globulin 2.90g/dl Albumin/Globulin Ratio 1.41 Lipase 423U/L Bedside Urine pH (LAB) 6.5 Bedside Urine Protein (LAB) Negative Bedside Urine Glucose (UA) Negative Bedside Urine Ketones (LAB) Negative Bedside Urine Blood Negative Bedside Urine Nitrite (LAB) Negative Bedside Urine Leukocyte Esterase (L Negative Current Medications Medications (Trade) Dose Ordered Sig/Annette Route PRN Reason Start Time Stop Time Status Last Admin Dose Admin Ketorolac Tromethamine (Toradol) 30 mg ONCE STAT IV 07/26/17 04:20 07/26/17 04:21 DC 07/26/17 04:31 Bisacodyl (Dulcolax Supp) [address] 07/26/17 04:30 07/26/17 04:31 DC 07/26/17 04:30 Procedures/MDM MEDICAL MAKING DECISION: The patient is a 32-year-old male, presenting with abdominal pain most likely due to constipation. He was treated with Toradol and 30 mg IV for pain, Dulcolax suppository for constipation with good response The differential diagnoses considered include but are not limited to cholelithiasis, cholecystitis, cystitis, pancreatitis, hepatitis, gastritis, peptic ulcer disease, gastric ulcer, appendicitis, diverticulitis, cholangitis, choledocholithiasis, partial small bowel obstruction, IBS Departure Diagnosis: Primary Impression: Constipation Condition: Good Comments He was discharged with Motrin, MiraLAX, Dulcolax suppository I discussed the findings with the patient. I advised the patient to follow-up with the primary physician in about 1-2 days, sooner if needed and return if any concern. Disclaimer: Inadvertent spelling and grammatical errors are likely due to EHR/ dictation software use and do not reflect on the overall quality of patient care. Also, please note that the electronic time recorded on this note does not necessarily reflect the actual time of the patient encounter. ELVIA PADILLA MD Jul 26, 2017 04:06
[2017-07-26 04:23] LABS: URINE BLOOD (Dip) POC Negative (NEGATIVE)
[2017-07-26 04:32] LABS: BASOPHILS % 0.5 % (0.0-2.0); EOSINOPHILS # 0.6 10^3/ul (0.0-0.5); EOSINOPHILS % 10.2 % (0.0-7.0); HEMOGLOBIN 15.2 g/dl (14.0-18.0); LYMPHOCYTES # 2.4 10^3/ul (0.8-2.9); LYMPHOCYTES % 41.5 % (15.0-51.0); MEAN CORPUSCULAR HEMOGLOBIN 31.2 pg (29.0-33.0); MEAN CORPUSCULAR HGB CONC 35.3 g/dl (32.0-37.0); MEAN CORPUSCULAR VOLUME 88.3 fl (82.0-101.0); MEAN PLATELET VOLUME 10.1 fl (7.4-10.4); MONOCYTE # 0.5 10^3/ul (0.3-0.9); MONOCYTES % 8.1 % (0.0-11.0); NEUTROPHIL # 2.3 10^3/ul (1.6-7.5); NEUTROPHILS % 39.7 % (39.0-77.0); PLATELET COUNT 169 10^3/UL (140-415); RED BLOOD COUNT 4.87 10^6/ul (4.70-6.10); RED CELL DISTRIBUTION WIDTH 11.3 % (11.5-14.5); WHITE BLOOD COUNT 5.8 10^3/ul (4.8-10.8)
[2017-07-26 05:33] LABS: ALBUMIN 4.1 g/dl (3.3-4.9); ALBUMIN/GLOBULIN RATIO 1.41; BILIRUBIN,INDIRECT 0.4 mg/dl (0-1.1); BILIRUBIN,TOTAL 0.4 mg/dl (0.2-1.3); CALCIUM 9.3 mg/dl (8.4-10.2); CREATININE 0.77 mg/dl (0.61-1.24); POTASSIUM 4.2 mmol/L (3.5-5.1)
== END | disposition home or self-care (01) ==
LOC: E/R 03:12
DX: K59.00 Constipation, unspecified (principal)
CPT/HCPCS: 36415; 80053; 81003; 83690; 85025; 96374; 99284; J1885

== ENCOUNTER 2017-10-17 22:12 | Emergency (ER) | END 2017-10-18 00:12 | disposition left against medical advice (07) ==

== ENCOUNTER 2017-10-19 21:29 | Emergency (ER) | END 2017-10-20 02:38 | disposition left against medical advice (07) ==

== ENCOUNTER 2017-11-07 07:30 | Emergency (ER) | END 2017-11-07 11:03 | disposition home or self-care (01) ==

== ENCOUNTER 2017-12-19 07:17 | Emergency (ER) | END 2017-12-19 09:12 | disposition home or self-care (01) ==